=== PATIENT | female | born 1995 | race Caucasian/White ===

== ENCOUNTER 2020-04-26 06:08 | Emergency (ER) | payer BC ==
[~2020-04-26] VITALS: Ht 160 cm; Wt 48.5 kg
[2020-04-26] MEDS ORDERED: MORPHINE SULFATE 2 MG/1 ML DISP.SYRIN IV ONE (06:30)
[2020-04-26 07:00] LABS: BASOPHILS # (AUTO) 0.1 K/uL (0.0-8.0); BASOPHILS % (AUTO) 0.5 % (0.0-2.0); EOSINOPHILS # (AUTO) 0.1 K/uL (0.0-0.7); EOSINOPHILS % (AUTO) 0.4 % (0.0-7.0); HEMATOCRIT 34.9 % (31.2-41.9); LYMPHOCYTES # (AUTO) 1.7 K/uL (20.0-40.0); MEAN CORPUSCULAR HEMOGLOBIN 31.9 uug (24.7-32.8); MEAN CORPUSCULAR HGB CONC 34 g/dL (32.3-35.6); MEAN CORPUSCULAR VOLUME 92.7 fL (75.5-95.3); MONOCYTES # (AUTO) 0.8 K/uL (2.0-10.0); MONOCYTES % (AUTO) 5.2 % (0.0-11.0); NEUTROPHILS # (AUTO) 13.1 K/uL (1.8-8.9); NEUTROPHILS % (AUTO) 82.9 % (38.5-71.5); PLATELET COUNT (AUTO) 224 K/uL (179-408); RED BLOOD CELL COUNT(AUTO) 3.77 MIL/uL (3.63-4.92); WHITE BLOOD COUNT (AUTO) 15.8 K/uL (3.8-11.8)
[2020-04-26] MEDS ORDERED: MORPHINE SULFATE 2 MG/1 ML DISP.SYRIN ONE (07:00)
[2020-04-26 07:06] LABS: CREATININE 0.9 mg/dL (0.6-1.3); POTASSIUM 3.5 mmol/L (3.5-5.1)
[2020-04-26 07:12] LABS: BILIRUBIN,DIRECT 0.1 mg/dL (0.0-0.2); BILIRUBIN,TOTAL 0.3 mg/dL (0.2-1.0)
[2020-04-26] MEDS ORDERED: ONDANSETRON 4 MG/2 ML VIAL IV ONE (07:15)
[2020-04-26] MEDS ORDERED: IV NORMAL SALINE 1000 ML BAG IV ONE (07:15)
[2020-04-26] MEDS ORDERED: ONDANSETRON 4 MG/2 ML VIAL ONE (07:15)
--- NOTE | 2020-04-26 07:19 | NUR ---
tech called at 0628 am. per Seth
[2020-04-26 09:16] LABS: *BILIRUBIN,URIN NEGATIVE (NEGATIVE); *BLOOD, URINE 3+ (NEGATIVE); *COLOR,URINE YELLOW (YELLOW); *KETONES,URINE NEGATIVE (NEGATIVE); *UROBILINOGEN,URINE 0.2 E.U./dl (NORMAL); LEUKOCYTE ESTERASE ,URINE NEGATIVE (NEGATIVE); NITRITE, URINE NEGATIVE (NEGATIVE); UGLUCOSE NEGATIVE (NEGATIVE)
[2020-04-26 09:27] LABS: *CLARITY,URINE HAZY (CLEAR)
[2020-04-26 09:28] LABS: BACTERIA,URINE FEW /HPF (NONE SEEN); RBC,URINE 20-50 /HPF (0-3); SQUAMOUS EPITHELIAL CELL,UR FEW /HPF (NONE SEEN)
--- NOTE | 2020-04-26 09:51 | NUR ---
Administered 50 mcg Rhogam left deltoid IM
--- NOTE | 2020-04-26 10:24 | NUR ---
No reactions. Removed IV intact, site okay, bandaged. Gave pt d/c instructions, pt verbalized understanding.
== END 2020-04-26 10:26 | disposition home or self-care (01) ==
LOC: ER 06:10
DX: O03.9 Complete or unspecified spontaneous abortion without complication (principal); O26.891 Other specified pregnancy related conditions, first trimester; Z67.41 Type O blood, Rh negative; Z3A.08 8 weeks gestation of pregnancy
CPT/HCPCS: 36415; 76856; 80048; 80076; 81001; 84702; 85025; 86850; 86900; 86901; 87086; 96361; 96372; 96374; 96375; 99285; J2270; J2405; J2790; A4663; J7030